=== PATIENT | female | born 1960 | race Caucasian/White ===

== ENCOUNTER → 2019-01-11 12:46 | Outpatient (CLI) | payer OTHER, SELFPAY ==
--- NOTE | 2019-01-11 12:50 | US_ITS ---
PROCEDURE: US BREAST LT COMPLETE CLINICAL INDICATION: LT BREAST PAIN the COMPARISON: BL US BREAST-LT COMPLETE W/AXILLA from 01/08/2016 CYST US CYST ASPIRATION from 02/03/2016 MAMMO DIAGNOSTIC DIGITAL TOMOSYNTHESIS BILATERAL W CAD from 12/27/2016 US GUIDED BREAST BIOPSY W WO DEVICE 1ST LEFT from 12/27/2016 FINDINGS: Ultrasound is performed of the left breast. The patient reports left breast pain and reports that she is too painful for mammogram. Behind the nipple there is a solid-appearing 3 mm nodule adjacent to a dilated duct which may represent a papilloma. 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 Surgical consult was recommended on that exam. Previous ultrasound performed at this institution demonstrated similar appearance of a solid-appearing nodule in the retroareolar region P with a dilated duct. The duct may be slightly more dilated on today's exam. No other sonographic abnormalities are evident. IMPRESSION: Solid-appearing 3 mm nodule adjacent to a dilated duct in the retroareolar region on the left similar to multiple previous exams consistent with a papilloma with ductal dilatation. Surgical consult suggested. Dictated by: Marco Antonio Heredia MD 01/19/2019 09:53 Electronically signed by Marco Antonio Heredia MD in [place] 01/19/2019 09:53
== END ==
PROVIDERS: PCP Nurse Practitioner Family; Visit Provider Nurse Practitioner Family
DX: N64.4 Mastodynia (principal)
CPT/HCPCS: 76641

== ENCOUNTER → 2019-01-19 09:13 | Outpatient (CLI) | payer OTHER, SELFPAY ==
--- NOTE | 2019-01-19 09:17 | XR_ITS ---
PROCEDURE: XR KNEE LT 3V CLINICAL INDICATION: LT KNEE ARTHRITIS COMPARISON: No exams were available for comparison FINDINGS: No fracture or dislocation. No lytic or blastic change. There is normal mineralization. There is slight decrease in the joint space laterally and there are minimal osteophytes at the patellofemoral joint. Other findings:None. IMPRESSION: Minimal osteoarthritic change Dictated by: Marco Antonio Heredia MD 01/19/2019 13:32 Electronically signed by Marco Antonio Heredia MD in [place] 01/19/2019 13:32
== END ==
PROVIDERS: PCP Internal Medicine Adolescent Medicine; Visit Provider Internal Medicine Adolescent Medicine
DX: M17.12 Unilateral primary osteoarthritis, left knee (principal)
CPT/HCPCS: 73562

== ENCOUNTER → 2019-03-13 14:33 | Outpatient (CLI) | payer OTHER, SELFPAY ==
--- NOTE | 2019-03-13 14:38 | MM_ITS ---
PROCEDURE: MM DIG MAMM BI DX W/CAD CLINICAL INDICATION: left breast nodule, rt side screening COMPARISON: [facility] DIGITAL MAMM-SCREEN BILATERAL from 11/28/2009 [facility] DIG MAMM-SCREEN JUANA from 09/30/2014 [facility] DIG MAMM-SCREEN JUANA from 01/07/2016 US GUIDED BREAST BIOPSY W WO DEVICE 1ST LEFT from 12/27/2016 MAMMO DIAGNOSTIC DIGITAL TOMOSYNTHESIS BILATERAL W CAD from 12/27/2016 US BREAST LT COMPLETE from 01/11/2019 TECHNIQUE: Standard CC and MLO images were obtained. R2 CAD reviewed. FINDINGS: There is average fibroglandular tissue. Benign-appearing calcifications are present bilaterally. Stable appearance of the right breast. Patient has a known left-sided breast nodule which was previously biopsied at an outside institution and was reported represent a papilloma. Surgical excision was suggested at that time. On the left there is a retroareolar nodule once again noted measuring 5 mm. This was the nodule that was previously biopsied and demonstrated an intraductal papilloma. A clip is present at this region. There is a small cluster of calcification noted in the left axilla. These appear more numerous. Suggest patient return for Mag views of this area. There are new clustered coarse calcifications in the central aspect of the left breast. Also recommend repeat left breast ultrasound. IMPRESSION: Incomplete. Recommend Mag views of the left breast and left breast ultrasound of the nodular lesion in the retroareolar area BI-RAD Category: 0 Need Additional Imaging Evaluation FOLLOW-UP: IMM Immediate Follow-up Recommended (A letter has been sent to the patient regarding results of the study.) Dictated by: Marco Antonio Heredia MD 03/21/2019 10:15 Electronically signed by Marco Antonio Heredia MD in [place] 03/21/2019 10:15
== END ==
PROVIDERS: PCP Internal Medicine Adolescent Medicine; Visit Provider Surgery
DX: R92.8 Other abnormal and inconclusive findings on diagnostic imaging of breast (principal); N60.02 Solitary cyst of left breast
CPT/HCPCS: 77066

== ENCOUNTER 2019-05-13 00:13 | Inpatient (IN) ==
[2019-05-13 00:57] LABS: Basophils % 0.2 % (0.1-2.0); Eosinophils # 0.1 K/mm3 (0.0-0.4); Eosinophils % 0.4 % (0.1-12.0); Lymphocytes # 1.9 K/mm3 (0.7-4.5); Lymphocytes % 11.7 % (10-50); Mean Corpuscular HGB Conc 34.1 g/dL (31.8-35.4); Mean Corpuscular Volume 98.3 fl (81-99); Mean Platelet Volume 7.6 fl (7.4-10.4); Monocytes # 0.9 K/mm3 (0.1-1.0); Monocytes % 5.5 % (1.7-9.3); Neutrophils # 13.3 K/mm3 (1.8-7.8); Neutrophils % 82.3 % (37.0-80.0); Platelet Count 234 K/mm3 (142-424); Red Blood Count 4.48 M/mm3 (4.20-5.40); Red Cell Distribution Width 12.7 % (11.5-17.5); White Blood Count 16.1 K/mm3 (4.8-10.8)
[2019-05-13 01:13] LABS: Albumin Level 3.5 g/dL (3.4-5.0); Bilirubin,Total 2.4 mg/dL (0.2-1.0); Calcium 8.8 mg/dL (8.5-10.1); Globulin 3.4 gm/dl (1.3-3.2); Total Protein,Serum 6.9 g/dL (6.4-8.2)
[2019-05-13 01:21] LABS: Lymphocytes % 7 % (10-50); Monocytes % 2 % (2-9); Neutrophils % 84 % (42-76); RBC Morphology Normal; Total Cells Counted 100; Toxic Granulation 1+; Toxic Vacuolation 1+
--- NOTE | 2019-05-13 01:48 | Emergency Department Note ---
ED Disposition Clinical Impression: Diverticulitis Disposition: Admitted As Inpatient Condition on Discharge: Good - Critical Care Critical Care Time: No Attestation: On 05/13/19, the high probability of a clinically significant, sudden or life threatening deterioration of the following system(s) required my full and direct attention, intervention and personal management. The time I documented below is in addition to time spent performing reported procedures but includes the following listed in this critical care notation. Medical Decision Making - Medical Records Medical records reviewed: Yes: I reviewed the patient's medical records. - Itz Inquiry Pt receiving controlled substance: No Vital Signs: 05/13/19 00:21 Temperature 99.1 F Temperature Source Oral Pulse Rate [Right Brachial] 89 Respiratory Rate 18 Blood Pressure [Right Arm] 163/87 H Blood Pressure Mean [Right Arm] 112 Blood Pressure Source [Right Arm] Automatic Cuff Blood Pressure Position [Right Arm] Sitting 02 Sat by Pulse Oximetry 95 Oxygen Delivery Method Room Air - Lab Data Lab results reviewed: Yes: I reviewed the patient's lab results. Lab Results 05/13/19 00:32: WBC 16.1 H, RBC 4.48, Hgb 15.0, Hct 44.0, MCV 98.3, MCH 33.5 H, MCHC 34.1, RDW 12.7, Plt Count 234, MPV 7.6, Neut % (Auto) 82.3 H, Lymph % (Auto) 11.7, [place] % (Auto) 5.5, Eos % (Auto) 0.4, Baso % (Auto) 0.2, Neut # (Auto) 13.3 H, Lymph # (Auto) 1.9, [place] # (Auto) 0.9, Eos # (Auto) 0.1, Baso # (Auto) 0.0, Total Counted 100, Neutrophils % (Manual) 84 H, Band Neutrophils % 7.0, Lymphocytes % (Manual) 7 L, Monocytes % (Manual) 2, Toxic Granulation 1+, Toxic Vacuolation 1+, Platelet Estimate Normal, RBC Morphology Normal 05/13/19 00:32: Sodium 139, Potassium 4.0, Chloride 102, Carbon Dioxide 26, An ion Gap 15.0, BUN 20 H, Creatinine 0.97, Estimated Creat Clear 96, Estimated GFR 59, Est GFR ( Amer) 71, Glucose 152 H, Calcium 8.8, Total Bilirubin 2.4 H , AST 21, ALT 23, Alkaline Phosphatase 72, Total Protein 6.9, Albumin 3.5, Globulin 3.4 H, Albumin/Globulin Ratio 1.0 L, Amylase 23 L, Lipase 105 Result diagrams: 05/13/19 00:32 05/13/19 00:32 Orders (Tests/Meds): ED MEDICATIONS Generic Name Dose Route Start Last Admin Trade Name Freq PRN Reason Stop Dose Admin Sodium Chloride 1,000 mls @ 999 mls/hr 05/13/19 00:45 05/13/19 00:49 Sod Chlor 0.9% 1000ml Bag IV 05/13/19 01:45 999 mls/hr .Q1H1M ALBERTO Administration Ertapenem 1 gm/ Sodium 50 mls @ 100 mls/hr 05/13/19 02:15 05/13/19 02:33 Chloride IV 05/27/19 02:14 100 mls/hr Q24H ALBERTO Administration Protocol Morphine Sulfate 4 mg 05/13/19 02:05 05/13/19 02:34 Morphine 4mg/Ml Syringe IV 06/12/19 02:04 4 mg Q4HP PRN Administration Breakthru Moderate Pain Discontinued Medications Generic Name Dose Route Start Last Admin Trade Name Freq PRN Reason Stop Dose Admin Ioversol 75 ml 05/13/19 01:43 Rad-Optiray 350 100ml Vial IV 05/13/19 01:44 ONCE ONE Protocol Ketorolac Tromethamine 30 mg 05/13/19 00:36 05/13/19 00:49 Toradol 30mg/Ml Vial IV 05/13/19 00:37 30 mg ONCE ONE Administration Methylprednisolone Sodium Succinate 125 mg 05/13/19 00:36 05/13/19 00:49 Solu-Medrol 125mg/2ml Vial IV 05/13/19 00:37 125 mg ONCE ONE Administration Ondansetron HCl 4 mg 05/13/19 00:36 05/13/19 00:49 Zofran 4mg/2ml Vial IV 05/13/19 00:37 4 mg ONCE ONE Administration Sodium Chloride 10 ml 05/13/19 01:43 Rad-Saline Flush 10ml Syringe IV 05/13/19 01:44 ONCE ONE ORDERS Category Date Time Status CT abdomen pelvis w con Stat Cat Scan 05/13/19 00:24 Taken Urinalysis and Microscopic Stat Lab 05/13/19 00:24 Ordered - CT Data CT Scan: Abdomen, Pelvis Time Received: 02:[address] Reviewed: Yes: I have viewed the radiologist's interpretation Preliminary Findings: Abnormal (see report ) - Physician Consults Physician Consulted: isaac Reason -: Pt condition Additional Consult: jazmin Reason -: Admission Nausea/Vomiting/Diarrhea HPI - General Chief complaint: Abdominal Pain Stated complaint: Abd Pain Time Seen by Provider: 05/13/19 01:48 Mode of Arrival: Family Vehicle Source of Information: Patient, Spouse, Medical Record Limitations: No Limitations Description of Symptoms (Recalled from ER Triage Doc. by RN): pt began experiencing abd discomfort on tuesday, and was placed on levaquin for a "flare- up of her diverticulitis"; pt states pain and incr got worse and needs pain relief - History of Present Illness HPI Narrative: progressive lt lower abd pain despite her starting levofloxin tuesday - has hx of diverticulitis MD complaint: nausea, vomiting, abdominal pain Onset (ago): day(s) Associated Abdominal Pain: Yes Location of pain: LLQ Severity: moderate Quality: dull Consistency: intermittent Associated symptoms: denies other symptoms - Related Data Home Medications Medication Instructions Recorded Confirmed atenolol 100 mg tablet 100 mg PO DAILY 01/29/19 03/26/19 meloxicam 15 mg tablet 15 mg PO DAILY 01/29/19 03/26/19 pantoprazole 40 mg tablet,delayed 40 mg PO DAILY 01/29/19 03/26/19 release Allergies Allergy/AdvReac Type Severity Reaction Status Date / Time No Known Allergies Allergy Unverified 03/26/19 09:08 [facility] History - Hepatitis A Screen Drug use history?: No High risk sexual behaviors?: No History of sexually transmitted infection?: No Currently employed?: No Childcare worker?: No Do you have indoor plumbing?: Yes Do you have electricity?: Yes Attestation statement:: This patient has been screened for Hepatitis A risk factors. I have reviewed the patient's past medical history: Yes Medical History: Reports:: Gastroesophageal Reflux Disease(GERD), Hypertension Laterality Cases: Bilateral: Tonsillectomy Other Surgeries: Yes: Cholecystectomy, , Other Comment: lt breast biopsy - Social History Smoking Status: Never smoker Alcohol Intake: never Occupational Status: employed Family Hx:: No significant family history ROS Obtained: Yes All systems reviewed & no additional complaints - Constitutional Constitutional: Denies fever(s) - Eyes Eyes: Denies change in vision - ENT Ears, Nose, Mouth, and Throat: Denies sore throat - Cardiovascular Cardiovascular: Denies chest pain at rest, Denies dyspnea - Respiratory Respiratory: No cough - Gastrointestinal Gastrointestingal: Reports: as per HPI, abdominal pain, nausea, vomiting. Denies: diarrhea - Genitourinary Female Genitourinary: Denies hematuria - Musculoskeletal Musculoskeletal: Denies joint pain, Denies joint swelling - Integumentary/Breasts Skin/Breast: Denies rash - Neurologic Neurologic: Denies focal weakness Physical Exam - General General appearance: alert - Head Head exam: normocephalic - Eye Eye exam: Present: PERRL, EOMI. Absent: scleral icterus - ENT ENT exam: Present: mucous membranes dry - Neck Neck exam: Present: trachea midline - Respiratory Respiratory exam: Present: normal lung sounds bilaterally. Absent: respiratory distress - Cardiovascular Cardiovascular exam: Present: regular rate, systolic murmur - Abdominal Exam Abdominal exam: Present: soft, tenderness Abdominal tenderness: Present: LLQ, moderate - Extremities Exam Extremities exam: Present: full ROM - Neurological Exam Neurological exam: Present: alert, oriented X3, CN II-XII intact - Psychiatric Psychiatric exam: Present: normal affect - Skin Skin exam: Absent: rash
[2019-05-13 07:59] LABS: Basophils % 0.1 % (0.1-2.0); Eosinophils % 0.1 % (0.1-12.0); Hematocrit 38.9 % (37.0-47.0); Lymphocytes # 1.3 K/mm3 (0.7-4.5); Lymphocytes % 11.7 % (10-50); Mean Corpuscular Volume 99.7 fl (81-99); Mean Platelet Volume 7.4 fl (7.4-10.4); Monocytes # 0.3 K/mm3 (0.1-1.0); Monocytes % 2.4 % (1.7-9.3); Neutrophils # 9.1 K/mm3 (1.8-7.8); Neutrophils % 85.6 % (37.0-80.0); Platelet Count 154 K/mm3 (142-424); Red Blood Count 3.91 M/mm3 (4.20-5.40); Red Cell Distribution Width 12.7 % (11.5-17.5); White Blood Count 10.7 K/mm3 (4.8-10.8)
[2019-05-13 08:07] LABS: Anion Gap 15.1 mEq/L (5-15); Calcium 8.7 mg/dL (8.5-10.1)
[2019-05-13 08:32] LABS: Hemoglobin 13.5 g/dL (12.2-16.2)
--- NOTE | 2019-05-13 09:56 | Consult Report ---
*Admission Date: 05/13/19 *Reason for consult:: Diverticulitis with abscess *History of present illness: This is a 59-year-old female who presented overnight with increasing abdominal pain. She had radiographic evidence of diverticulitis with associated abscess. No free air. The surgical service was consulted for evaluation and management. No fevers. No bright red blood per rectum. No recent unexplained weight loss. She has a known history of diverticulosis and states that she has had a "serious bout (of diverticulitis) once before". She also describes "mini bouts occasionally over the last few years". She has had a colonoscopy "many years ago" and says she is "definitely overdue". HPI from emergency department evaluation forwarded below: Description of Symptoms (Recalled from ER Triage Doc. by RN): pt began experiencing abd discomfort on tuesday, and was placed on levaquin for a "flare- up of her diverticulitis"; pt states pain and incr got worse and needs pain relief - History of Present Illness HPI Narrative: progressive lt lower abd pain despite her starting levofloxin tuesday - has hx of diverticulitis complaint: nausea, vomiting, abdominal pain Onset (ago): day(s) Associated Abdominal Pain: Yes Location of pain: LLQ Severity: moderate Quality: dull Consistency: intermittent Associated symptoms: denies other symptoms Review of Systems - Constitutional Denies chills - *Cardiovascular Denies chest pain - *Respiratory Denies cough - *Gastrointestinal Reports abdominal pain, Reports nausea - *Musculoskeletal Denies back pain - *Neurologic Denies localized weakness - Hematologic/Lymphatic Denies easy bleeding [facility] History Medical History: Reports:: Gastroesophageal Reflux Disease(GERD), Hypertension Denies:: Diabetes Mellitus Type 1, Diabetes Mellitus Type 2 *Have you ever received a pneumonia vaccine?: No *Have you received a flu vaccine this season?: No Laterality Cases: Bilateral: Tonsillectomy Other Surgeries: Yes: Cholecystectomy, , Hysterectomy-Total, Other - *Social History Educational Level: Attended College Smoking Status: Never smoker Alcohol Intake: never *Occupational Status:: employed *Travel in the last 8 weeks: None Family Hx:: Cancer, Coronary Artery Disease, Hyperlipidemia, Hypertension Meds Home Medications Medication Instructions Recorded Confirmed Type atenolol 100 mg tablet 100 mg PO DAILY 01/29/19 05/13/19 History meloxicam 15 mg tablet 15 mg PO DAILY 01/29/19 05/13/19 History pantoprazole 40 mg tablet,delayed 40 mg PO DAILY 01/29/19 05/13/19 History release Acetaminophen with Codeine 1 tab PO NEEDED PRN 05/13/19 05/13/19 History [Acetaminophen w/Codeine #3 Tablet] levoFLOXacin [Levaquin] 500 mg PO DAILY 05/13/19 05/13/19 History Allergies Allergy/AdvReac Type Severity Reaction Status Date / Time No Known Allergies Allergy Unverified 03/26/19 09:08 Exam Vital signs and Labs for Last 24 Hours: Temp Pulse Resp BP Pulse Ox 98.0 F 68 17 131/72 95 05/13/19 08:00 05/13/19 08:00 05/13/19 08:00 05/13/19 08:00 05/13/19 08:00 Laboratory Results - last 24 hr 05/13/19 00:32: WBC 16.1 H, RBC 4.48, Hgb 15.0, Hct 44.0, MCV 98.3, MCH 33.5 H, MCHC 34.1, RDW 12.7, Plt Count 234, MPV 7.6, Neut % (Auto) 82.3 H, Lymph % (Auto) 11.7, [place] % (Auto) 5.5, Eos % (Auto) 0.4, Baso % (Auto) 0.2, Neut # (Auto) 13.3 H, Lymph # (Auto) 1.9, [place] # (Auto) 0.9, Eos # (Auto) 0.1, Baso # (Auto) 0.0, Total Counted 100, Neutrophils % (Manual) 84 H, Band Neutrophils % 7.0, Lymphocytes % (Manual) 7 L, Monocytes % (Manual) 2, Toxic Granulation 1+, Toxic Vacuolation 1+, Platelet Estimate Normal, RBC Morphology Normal 05/13/19 00:32: Sodium 139, Potassium 4.0, Chloride 102, Carbon Dioxide 26, Anion Gap 15.0, BUN 20 H, Creatinine 0.97, Estimated Creat Clear 96, Estimated GFR 59, Est GFR ( Amer) 71, Glucose 152 H, Calcium 8.8, Total Bilirubin 2.4 H, AST 21, ALT 23, Alkaline Phosphatase 72, Total Protein 6.9, Albumin 3.5, Globulin 3.4 H, Albumin/Globulin Ratio 1.0 L, Amylase 23 L, Lipase 105 05/13/19 01:41: Urine Color Cancelled, Urine Appearance Cancelled, Urine pH Cancelled, Ur Specific [place] Cancelled, Urine Protein Cancelled, Urine Glucose (UA) Cancelled, Urine Ketones Cancelled, Urine Blood Cancelled, Urine Nitrate Cancelled, Urine Bilirubin Cancelled, Urine Urobilinogen Cancelled, Ur Leukocyte Esterase Cancelled, Urine RBC Cancelled, Urine WBC Cancelled, Ur Squamous Epith Cells Cancelled, Ur Transition Epith Cell Cancelled, Ur Renal Epithelial Cell Cancelled, Calcium Carbonate Cryst Cancelled, Calcium Phosphate Cryst Cancelled, Calcium Oxalate Crystal Cancelled, Cystine Crystals Cancelled, Uric Acid C rystals Cancelled, Triple Phos Crystals Cancelled, Tyrosine Crystals Cancelled, Other Crystals Cancelled, Amorphous Sediment Cancelled, Other Sediment Cancelled, Urine Bacteria Cancelled, Fatty Casts Cancelled, Hyaline Casts Cancelled, Fine Granular Casts Cancelled, Coarse Granular Casts Cancelled, Waxy Casts Cancelled, RBC Casts Cancelled, WBC Casts Cancelled, Other Casts Cancelled, Urine Mucus Cancelled, Urine Trichomonas Cancelled, Urine Yeast Cancelled, Urine Sperm Cancelled 05/13/19 02:27: Lactate 0.8 05/13/19 06:35: WBC 10.7 D, RBC 3.91 L, Hgb 13.5, Hct 38.9, MCV 99.7 H, MCH 33.8 H, MCHC 34.0, RDW 12.7, Plt Count 154 D, MPV 7.4, Neut % (Auto) 85.6 H, Lymph % (Auto) 11.7, [place] % (Auto) 2.4, Eos % (Auto) 0.1, Baso % (Auto) 0.1, Neut # (Auto) 9.1 H, Lymph # (Auto) 1.3, [place] # (Auto) 0.3, Eos # (Auto) 0.0, Baso # (Auto) 0.0 05/13/19 06:35: Sodium 141, Potassium 4.1, Chloride 106, Carbon Dioxide 24, Anion Gap 15.1 H, BUN 20 H, Creatinine 0.97, Estimated Creat Clear 96, Estimated GFR 59, Est GFR ( Amer) 71, Glucose 182 H, Calcium 8.7 I & O for Last 24 hours: Intake & Output 05/10/19 05/11/19 05/12/19 05/13/19 11:59 11:59 11:59 11:59 Intake Total 1218 / 1218 Balance 8 1218 Weight 215 lb 3 oz - Constitutional no acute distress - *Routine HEENT Exam Head: Present: normocephalic - *Routine Respiratory Exam Absent: respiratory distress - *Routine Cardiovascular Exam Present: RRR - *Routine Abdominal Exam Present: soft, tenderness, obese. Absent: guarding, rigid Results - Labs 05/13/19 06:35 05/13/19 06:35 Laboratory Results - last 24 hr 05/13/19 00:32: WBC 16.1 H, RBC 4.48, Hgb 15.0, Hct 44.0, MCV 98.3, MCH 33.5 H, MCHC 34.1, RDW 12.7, Plt Count 234, MPV 7.6, Neut % (Auto) 82.3 H, Lymph % (Auto) 11.7, [place] % (Auto) 5.5, Eos % (Auto) 0.4, Baso % (Auto) 0.2, Neut # (Auto) 13.3 H, Lymph # (Auto) 1.9, [place] # (Auto) 0.9, Eos # (Auto) 0.1, Baso # (Auto) 0.0, Total Counted 100, Neutrophils % (Manual) 84 H, Band Neutrophils % 7.0, Lymphocytes % (Manual) 7 L, Monocytes % (Manual) 2, Toxic Granulation 1+, Toxic Vacuolation 1+, Platelet Estimate Normal, RBC Morphology Normal 05/13/19 00:32: Sodium 139, Potassium 4.0, Chloride 102, Carbon Dioxide 26, Anion Gap 15.0, BUN 20 H, Creatinine 0.97, Estimated Creat Clear 96, Estimated GFR 59, Est GFR ( Amer) 71, Glucose 152 H, Calcium 8.8, Total Bilirubin 2.4 H, AST 21, ALT 23, Alkaline Phosphatase 72, Total Protein 6.9, Albumin 3.5, Globulin 3.4 H, Albumin/Globulin Ratio 1.0 L, Amylase 23 L, Lipase 105 05/13/19 01:41: Urine Color Cancelled, Urine Appearance Cancelled, Urine pH Cancelled, Ur Specific [place] Cancelled, Urine Protein Cancelled, Urine Glucose (UA) Cancelled, Urine Ketones Cancelled, Urine Blood Cancelled, Urine Nitrate Cancelled, Urine Bilirubin Cancelled, Urine Urobilinogen Cancelled, Ur Leukocyte Esterase Cancelled, Urine RBC Cancelled, Urine WBC Cancelled, Ur Squamous Epith Cells Cancelled, Ur Transition Epith Cell Cancelled, Ur Renal Epithelial Cell Cancelled, Calcium Carbonate Cryst Cancelled, Calcium Phosphate Cryst Cancelled, Calcium Oxalate Crystal Cancelled, Cystine Crystals Cancelled, Uric Acid Crystals Cancelled, Triple Phos Crystals Cancelled, Tyrosine Crystals Cancelled, Other Crystals Cancelled, Amorphous Sediment Cancelled, Other Sediment Cancelled, Urine Bacteria Cancelled, Fatty Casts Cancelled, Hyaline Casts Cancelled, Fine Granular Casts Cancelled, Coarse Granular Casts Cancelled, Waxy Casts Cancelled, RBC Casts Cancelled, WBC Casts Cancelled, Other Casts Cancelled, Urine Mucus Cancelled, Urine Trichomonas Cancelled, Urine Yeast Cancelled, Urine Sperm Cancelled 05/13/19 02:27: Lactate 0.8 05/13/19 06:35: WBC 10.7 D, RBC 3.91 L, Hgb 13.5, Hct 38.9, MCV 99.7 H, MCH 33.8 H, MCHC 34.0, RDW 12.7, Plt Count 154 D, MPV 7.4, Neut % (Auto) 85.6 H, Lymph % (Auto) 11.7, [place] % (Auto) 2.4, Eos % (Auto) 0.1, Baso % (Auto) 0.1, Neut # (Auto) 9.1 H, Lymph # (Auto) 1.3, [place] # (Auto) 0.3, Eos # (Auto) 0.0, Baso # (Auto) 0.0 05/13/19 06:35: Sodium 141, Potassium 4.1, Chloride 106, Carbon Dioxide 24, Anion Gap 15.1 H, BUN 20 H, Creatinine 0.97, Estimated Creat Clear 96, Estimated GFR 59, Est GFR ( Amer) 71, Glucose 182 H, Calcium 8.7 - Imaging CT scan - abdomen: report reviewed, image reviewed CT scan - pelvis: report reviewed, image reviewed Assessment and Plan (1) Diverticulitis of large intestine with abscess Current visit: Yes Status: Acute Category: Medical Code(s): K57.20 - Diverticulitis of large intestine with perforation and abscess without bleeding Continue Invanz (complete 10 to 14-day course) Serial abdominal exams Clear liquids for now with slow advancement to a soft diet as she tolerates Repeat CT scan in 5 to 10 days for reassessment of abscesses (may require percutaneous drainage) Colonoscopy as outpatient Discussion with regard to elective resection will be ongoing
--- NOTE | 2019-05-13 16:52 | History & Physical Report ---
*Admission Date: 05/13/19 *Chief complaint: Severe onset of abdominal pain *History of present illness: This is a 59-year-old female who presented overnight with increasing abdominal pain. She had radiographic evidence of diverticulitis with associated abscess. No free air. The surgical service was consulted for evaluation and management. No fevers. No bright red blood per rectum. No recent unexplained weight loss. She has a known history of diverticulosis and states that she has had a "serious bout (of diverticulitis) once before". She also describes "mini bouts occasionally over the last few years". She has had a colonoscopy "many years ago" and says she is "definitely overdue". [facility] History I have reviewed the patient's past medical history: Yes Medical History: Reports:: Gastroesophageal Reflux Disease(GERD), Hypertension Denies:: Diabetes Mellitus Type 1, Diabetes Mellitus Type 2 *Have you ever received a pneumonia vaccine?: No *Have you received a flu vaccine this season?: No Laterality Cases: Bilateral: Tonsillectomy Other Surgeries: Yes: Cholecystectomy, , Hysterectomy-Total, Other - *Social History Educational Level: Attended College Smoking Status: Never smoker Alcohol Intake: never *Occupational Status:: employed *Travel in the last 8 weeks: None Family Hx:: Cancer, Coronary Artery Disease, Hyperlipidemia, Hypertension Review of Systems - Review of Systems Review of systems:: pertinent systems reviewed and negative unless documented below (14 point review of systems performed, pertinent positives and negatives as per HPI) - *Neurologic Denies localized weakness Meds Home Medications Medication Instructions Recorded Confirmed Type atenolol 100 mg tablet 100 mg PO DAILY 01/29/19 05/13/19 History meloxicam 15 mg tablet 15 mg PO DAILY 01/29/19 05/13/19 History pantoprazole 40 mg tablet,delayed 40 mg PO DAILY 01/29/19 05/13/19 History release Acetaminophen with Codeine 1 tab PO NEEDED PRN 05/13/19 05/13/19 History [Acetaminophen w/Codeine #3 Tablet] levoFLOXacin [Levaquin] 500 mg PO DAILY 05/13/19 05/13/19 History Allergies Allergy/AdvReac Type Severity Reaction Status Date / Time No Known Allergies Allergy Unverified 03/26/19 09:08 Exam Vital signs and Labs for Last 24 Hours: Temp Pulse Resp BP Pulse Ox 97.9 F 65 17 134/59 L 96 05/13/19 16:00 05/13/19 16:00 05/13/19 16:00 05/13/19 16:00 05/13/19 16:00 Laboratory Results - last 24 hr 05/13/19 00:32: WBC 16.1 H, RBC 4.48, Hgb 15.0, Hct 44.0, MCV 98.3, MCH 33.5 H, MCHC 34.1, RDW 12.7, Plt Count 234, MPV 7.6, Neut % (Auto) 82.3 H, Lymph % (Auto) 11.7, Gillespie % (Auto) 5.5, Eos % (Auto) 0.4, Baso % (Auto) 0.2, Neut # (Auto) 13.3 H, Lymph # (Auto) 1.9, Gillespie # (Auto) 0.9, Eos # (Auto) 0.1, Baso # (Auto) 0.0, Total Counted 100, Neutrophils % (Manual) 84 H, Band Neutrophils % 7.0, Lymphocytes % (Manual) 7 L, Monocytes % (Manual) 2, Toxic Granulation 1+, Toxic Vacuolation 1+, Platelet Estimate Normal, RBC Morphology Normal 05/13/19 00:32: Sodium 139, Potassium 4.0, Chloride 102, Carbon Dioxide 26, Anion Gap 15.0, BUN 20 H, Creatinine 0.97, Estimated Creat Clear 96, Estimated GFR 59, Est GFR ( Amer) 71, Glucose 152 H, Calcium 8.8, Total Bilirubin 2.4 H, AST 21, ALT 23, Alkaline Phosphatase 72, Total Protein 6.9, Albumin 3.5, Globulin 3.4 H, Albumin/Globulin Ratio 1.0 L, Amylase 23 L, Lipase 105 05/13/19 01:41: Urine Color Cancelled, Urine Appearance Cancelled, Urine pH Cancelled, Ur Specific [place] Cancelled, Urine Protein Cancelled, Urine Glucose (UA) Cancelled, Urine Ketones Cancelled, Urine Blood Cancelled, Urine Nitrate C ancelled, Urine Bilirubin Cancelled, Urine Urobilinogen Cancelled, Ur Leukocyte Esterase Cancelled, Urine RBC Cancelled, Urine WBC Cancelled, Ur Squamous Epith Cells Cancelled, Ur Transition Epith Cell Cancelled, Ur Renal Epithelial Cell Cancelled, Calcium Carbonate Cryst Cancelled, Calcium Phosphate Cryst Cancelled, Calcium Oxalate Crystal Cancelled, Cystine Crystals Cancelled, Uric Acid Crystals Cancelled, Triple Phos Crystals Cancelled, Tyrosine Crystals Cancelled, Other Crystals Cancelled, Amorphous Sediment Cancelled, Other Sediment Cancelled, Urine Bacteria Cancelled, Fatty Casts Cancelled, Hyaline Casts Cancelled, Fine Granular Casts Cancelled, Coarse Granular Casts Cancelled, Waxy Casts Cancelled, RBC Casts Cancelled, WBC Casts Cancelled, Other Casts Cancelled, Urine Mucus Cancelled, Urine Trichomonas Cancelled, Urine Yeast Cancelled, Urine Sperm Cancelled 05/13/19 02:27: Lactate 0.8 05/13/19 06:35: WBC 10.7 D, RBC 3.91 L, Hgb 13.5, Hct 38.9, MCV 99.7 H, MCH 33.8 H, MCHC 34.0, RDW 12.7, Plt Count 154 D, MPV 7.4, Neut % (Auto) 85.6 H, Lymph % (Auto) 11.7, Gillespie % (Auto) 2.4, Eos % (Auto) 0.1, Baso % (Auto) 0.1, Neut # (Auto) 9.1 H, Lymph # (Auto) 1.3, Gillespie # (Auto) 0.3, Eos # (Auto) 0.0, Baso # (Auto) 0.0 05/13/19 06:35: Sodium 141, Potassium 4.1, Chloride 106, Carbon Dioxide 24, Anion Gap 15.1 H, BUN 20 H, Creatinine 0.97, Estimated Creat Clear 96, Estimated GFR 59, Est GFR ( Amer) 71, Glucose 182 H, Calcium 8.7 I & O for Last 24 hours: Intake & Output 05/10/19 05/11/19 05/12/19 05/13/19 23:59 23:59 23:59 23:59 Intake Total 1218 / 1218 Balance 1218 / 1218 Weight 97.607 kg - Constitutional no acute distress, obese - *Routine HEENT Exam Head: Present: normocephalic Eye: Present: EOMI, PERRL ENT: Present: mucous membranes moist - *Routine Neck Exam Present: supple. Absent: lymphadenopathy - *Routine Respiratory Exam Present: CTA bilaterally - *Routine Cardiovascular Exam Present: RRR - *Routine Abdominal Exam Present: soft, tenderness (Hypoactive bowel sounds, diffuse tenderness with focal exquisite tenderness left lower quadrant just medial to ASIS). Absent: rebound - *Routine Extremities Exam Absent: cyanosis, clubbing, edema - *Routine Skin Exam Present: warm. Absent: rash - *Routine Neurological Exam Present: alert, oriented X3 Assessment and Plan (1) Diverticulitis of large intestine with abscess Current visit: Yes Status: Acute Category: Medical Code(s): K57.20 - Diverticulitis of large intestine with perforation and abscess without bleeding (2) Class 2 obesity Current visit: Yes Status: Chronic Category: Medical Code(s): E66.9 - Obesity, unspecified complicates all aspects of her care (3) Constipation Current visit: Yes Status: Acute Category: Medical Code(s): K59.00 - Constipation, unspecified - Assessment and plan all Dx Assessment and Plan for all problems:: 59-year-old female with history of diverticulosis who presents with 1 week of worsening abdominal pain that culminated with acute worsening on day of presentation. Found to have complicated diverticulitis with perforation and abscess formation. At this time is tolerating IV Invanz. Surgery consulted for recommendations. Appreciate their assistance. Recommendations as follows: Continue Invanz (complete 10 to 14-day course) Serial abdominal exams Clear liquids for now with slow advancement to a soft diet as she tolerates Repeat CT scan in 5 to 10 days for reassessment of abscesses (may require percutaneous drainage) Colonoscopy as outpatient Discussion with regard to elective resection will be ongoing Initiated Toradol for pain control. Plan for PICC placement in the morning. Antibiotics as per above. Tolerating clear liquids at this time. Patient is additionally constipated, initiate bowel regimen today.
[2019-05-14 06:43] LABS: Albumin/Globulin Ratio 0.8 (1.1-1.8); Anion Gap 12.2 mEq/L (5-15); Bilirubin,Total 0.7 mg/dL (0.2-1.0); Calcium 8.5 mg/dL (8.5-10.1); Globulin 3.6 gm/dl (1.3-3.2); Total Protein,Serum 6.6 g/dL (6.4-8.2)
[2019-05-14 06:44] LABS: Basophils % 0.2 % (0.1-2.0); Eosinophils % 0.2 % (0.1-12.0); Hematocrit 37.7 % (37.0-47.0); Hemoglobin 12.7 g/dL (12.2-16.2); Lymphocytes # 0.9 K/mm3 (0.7-4.5); Mean Corpuscular HGB Conc 33.7 g/dL (31.8-35.4); Mean Corpuscular Volume 98.5 fl (81-99); Mean Platelet Volume 7.4 fl (7.4-10.4); Monocytes # 0.2 K/mm3 (0.1-1.0); Monocytes % 2.6 % (1.7-9.3); Neutrophils % 87.1 % (37.0-80.0); Platelet Count 177 K/mm3 (142-424); Red Blood Count 3.82 M/mm3 (4.20-5.40); Red Cell Distribution Width 12.5 % (11.5-17.5); White Blood Count 9.2 K/mm3 (4.8-10.8)
--- NOTE | 2019-05-14 07:28 | Discharge Summary ---
General - General Admission date:: 05/13/19 Discharge date: 05/14/19 HPI HPI: 59-year-old female with approximately 5 days of worsening abdominal pain. Had standing order at home for fluoroquinolone which she started on Tuesday. She has known history of diverticulosis with last hospitalization approximately a year ago for diverticulitis. She states that symptoms were doing somewhat better until yesterday when she had acute onset of worsening abdominal pain in her left lower quadrant. It was serious enough to cause her to come to the ER for evaluation. Initial labs fairly unremarkable however CT abdomen pelvis showed what appeared to be 3 abscesses and pericolonic stranding by her sigmoid colon. Largest abscess approximately 3 cm. Admitted to medicine for further management. Initiated on Invanz. Made n.p.o. Surgery consulted for recommendations. Hospital Course Hospital Course: Admitted overnight with initiation of IV antibiotics. Diet slowly advanced during stay. Pain better controlled. Tolerating bowel regimen with improvement in constipation. PICC line was placed prior to discharge. Plan for 12 more days of IV Invanz infusions. We will follow-up imaging in a week with repeat CT to assess for improvement, resolution, progression of abscess. At that time will make decision about possible interventional radiology drain placement either here at [facility] or . Additionally will plan for colonoscopy in the coming months and referral to for her again consult to discuss definitive treatment for diverticulosis. Denies nausea, vomiting, chest pain, shortness of breath. Reports improved abdominal pain. Tolerating full liquid diet. Afebrile, hemodynamically stable. Medically stable for discharge Objective Vital signs: Temp Pulse Resp BP Pulse Ox 98.4 F 79 16 140/74 97 05/14/19 04:00 05/14/19 04:00 05/14/19 04:00 05/14/19 04:00 05/14/19 04:00 Narrative: - Constitutional: no acute distress, obese - *Routine HEENT Exam Head: Present: normocephalic Eye: Present: EOMI, PERRL ENT: Present: mucous membranes moist - *Routine Neck Exam Present: supple. Absent: lymphadenopathy - *Routine Respiratory Exam Present: CTA bilaterally - *Routine Cardiovascular Exam Present: RRR - *Routine Abdominal Exam Present: soft, interval improvement in tenderness, normoactive bowel sounds. minimal right sided tenderness, non tender throughout other than LLQ focally just medial to ASIS Absent: rebound - *Routine Extremities Exam Absent: cyanosis, clubbing, edema - *Routine Skin Exam Present: warm. Absent: rash - *Routine Neurological Exam Present: alert, oriented X3 Results Labs on day of discharge: Labs from last 24 hours 05/14/19 05/14/19 05/13/19 05:50 05:50 06:35 WBC 9.2 RBC 3.82 L Hgb 12.7 Hct 37.7 MCV 98.5 MCH 33.2 H MCHC 33.7 RDW 12.5 Plt Count 177 MPV 7.4 Neut % (Auto) 87.1 H Lymph % (Auto) 10.0 Good[place] % (Auto) 2.6 Eos % (Auto) 0.2 Baso % (Auto) 0.2 Neut # (Auto) 8.0 H Lymph # (Auto) 0.9 [place] # (Auto) 0.2 Eos # (Auto) 0.0 Baso # (Auto) 0.0 Sodium 145 141 Potassium 4.2 4.1 Chloride 110 H 106 Carbon Dioxide 27 24 Anion Gap 12.2 15.1 H BUN 18 20 H Creatinine 0.96 0.97 Estimated Creat Clear 48 96 Estimated GFR 59 59 Est GFR ( Amer) 72 71 Glucose 172 H 182 H Calcium 8.5 8.7 Magnesium 2.0 Total Bilirubin 0.7 AST 13 L D ALT 21 Alkaline Phosphatase 57 Total Protein 6.6 Albumin 3.0 L D Globulin 3.6 H Albumin/Globulin Ratio 0.8 L 05/13/19 06:35 WBC 10.7 D RBC 3.91 L Hgb 13.5 Hct 38.9 MCV 99.7 H MCH 33.8 H MCHC 34.0 RDW 12.7 Plt Count 154 D MPV 7.4 Neut % (Auto) 85.6 H Lymph % (Auto) 11.7 Gooding % (Auto) 2.4 Eos % (Auto) 0.1 Baso % (Auto) 0.1 Neut # (Auto) 9.1 H Lymph # (Auto) 1.3 Gooding # (Auto) 0.3 Eos # (Auto) 0.0 Baso # (Auto) 0.0 Sodium Potassium Chloride Carbon Dioxide Anion Gap BUN Creatinine Estimated Creat Clear Estimated GFR Est GFR ( Amer) Glucose Calcium Magnesium Total Bilirubin AST ALT Alkaline Phosphatase Total Protein Albumin Globulin Albumin/Globulin Ratio DS: Diagnosis - Discharge Diagnosis (1) Diverticulitis of large intestine with abscess Status: Acute (2) Class 2 obesity Status: Chronic (3) Constipation Status: Resolved Discharge Plan - Patient Discharge Instructions ACTIVITY: Continue current activity DIET: continue same diet Patient Instructions: Diverticulitis, DI for Diverticulitis, Peripherally Inserted Central Catheter - Follow up Plan Follow up with: Rogelio Erwin MD [Staff Physician] - 05/22/19 10:15 am Daniel Londono MD [Staff Physician] - 05/23/19 9:45 am Disposition: Home, Self-Retirement Medications: Home Medications Medication Instructions Recorded Confirmed Type atenolol 100 mg tablet 100 mg PO DAILY 01/29/19 05/13/19 History meloxicam 15 mg tablet 15 mg PO DAILY 01/29/19 05/13/19 History pantoprazole 40 mg tablet,delayed 40 mg PO DAILY 01/29/19 05/13/19 History release Acetaminophen with Codeine 1 tab PO NEEDED PRN 05/13/19 05/13/19 History [Acetaminophen w/Codeine #3 Tablet] Ertapenem Sodium [Invanz 1gm Vial] 1 gm IV Q24H 12 Days #12 vial 05/14/19 Rx polyethylene glycoL 3350 [Miralax 17 gm PO BID powd.pack 05/14/19 Rx 17gm Packet] Prescriptions/Medication Reconciliation: New polyethylene glycoL 3350 [Miralax 17gm Packet] 17 gm PO BID powd.pack Ertapenem Sodium [Invanz 1gm Vial] 1 gm IV Q24H 12 Days #12 vial Continued atenolol 100 mg tablet 100 mg PO DAILY pantoprazole 40 mg tablet,delayed release 40 mg PO DAILY meloxicam 15 mg tablet 15 mg PO DAILY Acetaminophen with Codeine [Acetaminophen w/Codeine #3 Tablet] 1 tab PO NEEDED PRN PRN Reason: Moderate To Severe Pain Discontinued levoFLOXacin [Levaquin] 500 mg PO DAILY - Problem Reconciliation Problems Reviewed?: Yes
--- NOTE | 2019-05-14 07:33 | Pharmacy Consult Notes ---
[facility] Pharmacy VTE Monitoring - Patient Demographics Admission date: 05/13/19 Report Date: 05/14/19 Time: 07:32 Allergies/Adverse Reactions: Patient Allergies No Known Allergies Allergy (Unverified 03/26/19 09:08) Height: 1.57 m Weight: 100.357 kg Patient Problems: Current Active Problems Diverticulitis (Acute) Diverticulitis of large intestine with abscess (Acute) Class 2 obesity (Chronic) Constipation (Acute) - VTE Risk Labs: VTE Related Lab Results Hgb 12.7 g/dL (12.2-16.2) 05/14/19 05:50 Hct 37.7 % (37.0-47.0) 05/14/19 05:50 Plt Count 177 K/mm3 (142-424) 05/14/19 05:50 BUN 18 mg/dL (7-18) 05/14/19 05:50 Creatinine 0.96 mg/dL (0.55-1.02) 05/14/19 05:50 Estimated Creat Clear 48 mL/min (50-200) 05/14/19 05:50 VTE Score: 2 - Prophylaxis VTE Prophylaxis Ordered?: Yes Types of VTE Prophylaxis: TEDS Knee High Location of Applied Device: Bilateral Lower Extremeties
[2019-05-14 07:38] LABS: Eosinophils % 1 % (0-3); Lymphocytes % 11 % (10-50); Monocytes % 4 % (2-9); Neutrophils % 84 % (42-76); Total Cells Counted 100
[2019-05-14 07:39] LABS: RBC Morphology Normal
--- NOTE | 2019-05-14 08:21 | Progress Note ---
Subjective Patient reports: feels better, still having pain, pain is less, bowel movement Exam Vital signs and Labs for Last 24 Hours: Temp Pulse Resp BP Pulse Ox 98.4 F 79 16 140/74 97 05/14/19 04:00 05/14/19 04:00 05/14/19 04:00 05/14/19 04:00 05/14/19 04:00 Laboratory Results - last 24 hr 05/13/19 06:35: WBC 10.7 D, RBC 3.91 L, Hgb 13.5, Hct 38.9, MCV 99.7 H, MCH 33.8 H, MCHC 34.0, RDW 12.7, Plt Count 154 D, MPV 7.4, Neut % (Auto) 85.6 H, Lymph % (Auto) 11.7, [place] % (Auto) 2.4, Eos % (Auto) 0.1, Baso % (Auto) 0.1, Neut # (Auto) 9.1 H, Lymph # (Auto) 1.3, [place] # (Auto) 0.3, Eos # (Auto) 0.0, Baso # (Auto) 0.0 05/13/19 06:35: Sodium 141, Potassium 4.1, Chloride 106, Carbon Dioxide 24, Anion Gap 15.1 H, BUN 20 H, Creatinine 0.97, Estimated Creat Clear 96, Estimated GFR 59, Est GFR ( Amer) 71, Glucose 182 H, Calcium 8.7 05/14/19 05:50: WBC 9.2, RBC 3.82 L, Hgb 12.7, Hct 37.7, MCV 98.5, MCH 33.2 H, MCHC 33.7, RDW 12.5, Plt Count 177, MPV 7.4, Neut % (Auto) 87.1 H, Lymph % (Auto) 10.0, [place] % (Auto) 2.6, Eos % (Auto) 0.2, Baso % (Auto) 0.2, Neut # (Auto) 8.0 H, Lymph # (Auto) 0.9, [place] # (Auto) 0.2, Eos # (Auto) 0.0, Baso # (Auto) 0.0, Total Counted 100, Neutrophils % (Manual) 84 H, Lymphocytes % (Manual) 11, Monocytes % (Manual) 4, Eosinophils % (Manual) 1, Platelet Estimate Normal, RBC Morphology Normal 05/14/19 05:50: Sodium 145, Potassium 4.2, Chloride 110 H, Carbon Dioxide 27, Anion Gap 12.2, BUN 18, Creatinine 0.96, Estimated Creat Clear 48, Estimated GFR 59, Est GFR ( Amer) 72, Glucose 172 H, Calcium 8.5, Magnesium 2.0, Total Bilirubin 0.7, AST 13 L D, ALT 21, Alkaline Phosphatase 57, Total Protein 6.6, Albumin 3.0 L D, Globulin 3.6 H, Albumin/Globulin Ratio 0.8 L I & O for Last 24 hours: Intake & Output 05/11/19 05/12/19 05/13/19 05/14/19 11:59 11:59 11:59 11:59 Intake Total 1218 / 1218 2442 / 2442 Output Total 0 / 0 Balance 1218 / 1218 2442 / 2442 Weight 215 lb 3 oz 221 lb 3.989 oz - Constitutional no acute distress - *Routine Respiratory Exam Absent: respiratory distress - *Routine Cardiovascular Exam Present: RRR - *Routine Abdominal Exam Comments: still with some pain/discomfort in LLQ Progress Note: A&P (1) Diverticulitis of large intestine with abscess Status: Acute Assessment and plan: Invanz via PICC Close outpatient follow-up Repeat CT scan in 5-7 days Colonoscopy in near future Discussion with regard to possible elective resection will be ongoing. She wishes to consider laparoscopic approach and also wishes to consider discussion with Dr. Tobi Adame at the [facility]. Current Visit: Yes (2) Class 2 obesity Status: Chronic Current Visit: Yes (3) Constipation Status: Acute Current Visit: Yes
== END 2019-05-14 16:20 | disposition home or self-care (01) | DRG 392 ==
LOC: ER 00:13 → 2ND 00:13 → OBSVTOIN 03:20 → 2ND 03:21
PROVIDERS: ADMIT Internal Medicine Adolescent Medicine; ATTEND Internal Medicine Adolescent Medicine
CPT/HCPCS: 36415; 36569; 71010; 71045; 74177; 80048; 80053; 82150; 83605; 83690; 83735; 85007; 85025; 87040; 96365; 96375; 99284; C1751; J1335; J2405

== ENCOUNTER 2019-05-15 13:05 | Outpatient (CLI) | payer OTHER, SELFPAY ==
[2019-05-15 13:25] VITALS: BP 138/77; PULSE 90; RESP 18; TEMP 36.6; O2SAT 97
[2019-05-15 13:55] VITALS: BP 131/79; PULSE 87; RESP 18; O2SAT 98
[2019-05-15 14:10] VITALS: BP 135/74; PULSE 91; RESP 18; O2SAT 97
== END 2019-05-15 14:10 | disposition home or self-care (01) ==
LOC: INF 13:06
PROVIDERS: PCP Internal Medicine Adolescent Medicine; Visit Provider Internal Medicine Adolescent Medicine
DX: K57.20 Diverticulitis of large intestine with perforation and abscess without bleeding
CPT/HCPCS: 96365; J1335

== ENCOUNTER 2019-05-16 12:25 | Outpatient (CLI) | payer OTHER, SELFPAY ==
[2019-05-16 12:40] VITALS: BP 126/84; PULSE 70; RESP 18; TEMP 36.6; O2SAT 98
[2019-05-16 13:10] VITALS: BP 127/81; PULSE 69; RESP 18; O2SAT 98
[2019-05-16 13:25] VITALS: BP 130/73; PULSE 67; RESP 18; O2SAT 97
== END 2019-05-16 13:25 | disposition home or self-care (01) ==
LOC: INF 12:25
PROVIDERS: PCP Internal Medicine Adolescent Medicine; Visit Provider Internal Medicine Adolescent Medicine
DX: K57.20 Diverticulitis of large intestine with perforation and abscess without bleeding (principal)
CPT/HCPCS: 96365; J1335

== ENCOUNTER 2019-05-17 12:27 | Outpatient (CLI) | payer OTHER, SELFPAY ==
[2019-05-17 12:35] VITALS: BP 127/68; PULSE 74; RESP 18; TEMP 36.4; O2SAT 98
[2019-05-17 13:10] VITALS: BP 128/80; PULSE 74; RESP 18; TEMP 36.4; O2SAT 98
== END 2019-05-17 13:15 | disposition home or self-care (01) ==
LOC: INF 12:27
PROVIDERS: Visit Provider Internal Medicine Adolescent Medicine
DX: K57.20 Diverticulitis of large intestine with perforation and abscess without bleeding (principal)
CPT/HCPCS: 96365; J1335

== ENCOUNTER 2019-05-18 12:19 | Outpatient (CLI) | payer OTHER, SELFPAY ==
[2019-05-18 12:25] VITALS: BP 132/75; PULSE 65; RESP 18; TEMP 36.2
[2019-05-18 13:15] VITALS: BP 126/66; PULSE 68; RESP 18
== END 2019-05-18 13:15 | disposition home or self-care (01) ==
LOC: INF 12:19
PROVIDERS: Visit Provider Internal Medicine Adolescent Medicine
DX: K57.20 Diverticulitis of large intestine with perforation and abscess without bleeding (principal)
CPT/HCPCS: 96365; J1335

== ENCOUNTER → 2019-05-19 11:10 | Outpatient (CLI) | payer OTHER, SELFPAY ==
[2019-05-19 11:31] VITALS: BP 135/78; PULSE 66; RESP 16; TEMP 36.9; O2SAT 97; BMI 34.7
== END ==
PROVIDERS: PCP Internal Medicine Adolescent Medicine; Visit Provider Internal Medicine Adolescent Medicine
DX: K57.20 Diverticulitis of large intestine with perforation and abscess without bleeding (principal)
CPT/HCPCS: 96365; J1335

== ENCOUNTER → 2019-05-20 11:17 | Outpatient (CLI) | payer OTHER, SELFPAY ==
[2019-05-20 11:44] VITALS: BP 127/65; PULSE 65; RESP 16; TEMP 36.4; O2SAT 98; BMI 39.3
== END ==
PROVIDERS: PCP Internal Medicine Adolescent Medicine; Visit Provider Internal Medicine Adolescent Medicine
DX: K57.20 Diverticulitis of large intestine with perforation and abscess without bleeding (principal)
CPT/HCPCS: 96365; J1335

== ENCOUNTER 2019-05-21 12:19 | Outpatient (CLI) | payer OTHER, SELFPAY ==
[2019-05-21 12:38] VITALS: BP 128/71; PULSE 78; RESP 18; TEMP 36.6; O2SAT 98
[2019-05-21 13:08] VITALS: BP 124/79; PULSE 77; RESP 18; O2SAT 99
[2019-05-21 13:25] VITALS: BP 123/78; PULSE 69; RESP 18; O2SAT 98
== END 2019-05-21 13:25 | disposition home or self-care (01) ==
LOC: INF 12:19
PROVIDERS: Visit Provider Internal Medicine Adolescent Medicine
DX: K57.20 Diverticulitis of large intestine with perforation and abscess without bleeding (principal)
CPT/HCPCS: 96365; J1335

== ENCOUNTER 2019-05-22 12:17 | Outpatient (CLI) | payer OTHER, SELFPAY ==
[2019-05-22 12:25] VITALS: BP 131/78; PULSE 69; RESP 18; TEMP 36.2; O2SAT 98
[2019-05-22 13:10] VITALS: BP 122/66; PULSE 86; RESP 20; O2SAT 98
== END 2019-05-22 13:20 | disposition home or self-care (01) ==
LOC: INF 12:17
PROVIDERS: Visit Provider Internal Medicine Adolescent Medicine
DX: K57.20 Diverticulitis of large intestine with perforation and abscess without bleeding (principal)
CPT/HCPCS: 96365; J1335

== ENCOUNTER 2019-05-23 12:20 | Outpatient (CLI) | payer OTHER, SELFPAY ==
[2019-05-23 12:37] VITALS: BP 143/73; PULSE 66; RESP 18; TEMP 36.7; O2SAT 98
[2019-05-23 13:25] VITALS: BP 137/68; PULSE 64; RESP 18; O2SAT 99
== END 2019-05-23 13:35 | disposition home or self-care (01) ==
LOC: INF 12:20
PROVIDERS: Visit Provider Internal Medicine Adolescent Medicine
DX: K57.20 Diverticulitis of large intestine with perforation and abscess without bleeding (principal)
CPT/HCPCS: 96365; J1335

== ENCOUNTER 2019-05-24 12:15 | Outpatient (CLI) | payer OTHER, SELFPAY ==
[2019-05-24 12:15] VITALS: BP 129/87; PULSE 61; RESP 18; TEMP 36.6; O2SAT 99
[2019-05-24 13:05] VITALS: BP 134/70; PULSE 61; RESP 18; O2SAT 99
== END 2019-05-24 13:05 | disposition home or self-care (01) ==
LOC: INF 12:15
PROVIDERS: Visit Provider Internal Medicine Adolescent Medicine
DX: K57.20 Diverticulitis of large intestine with perforation and abscess without bleeding (principal)
CPT/HCPCS: 96365; J1335

== ENCOUNTER 2019-05-25 12:09 | Outpatient (CLI) | payer OTHER, SELFPAY ==
[2019-05-25 12:11] VITALS: BP 139/65; PULSE 52; RESP 18; O2SAT 98
[2019-05-25 12:59] VITALS: BP 132/71; PULSE 62; RESP 18
== END 2019-05-25 12:59 | disposition home or self-care (01) ==
LOC: INF 12:09
PROVIDERS: Visit Provider Internal Medicine Adolescent Medicine
DX: K57.20 Diverticulitis of large intestine with perforation and abscess without bleeding (principal)
CPT/HCPCS: 96365; J1335

== ENCOUNTER 2019-05-26 11:45 | Outpatient (CLI) | payer OTHER, SELFPAY ==
[2019-05-26 12:08] VITALS: BP 134/69; PULSE 69; RESP 17; TEMP 36.8; O2SAT 96
[2019-05-26 12:40] VITALS: BP 132/68; PULSE 72; RESP 17; TEMP 36.8; O2SAT 95
== END 2019-05-26 12:45 | disposition home or self-care (01) ==
LOC: INF 11:45
PROVIDERS: PCP Internal Medicine Adolescent Medicine; Visit Provider Internal Medicine Adolescent Medicine
DX: K57.20 Diverticulitis of large intestine with perforation and abscess without bleeding (principal)
CPT/HCPCS: 96365; G0463; J1335

== ENCOUNTER 2019-05-27 11:14 | Outpatient (CLI) | payer OTHER, SELFPAY ==
[2019-05-27 11:58] VITALS: BP 139/81; PULSE 60; RESP 16; TEMP 36.8; O2SAT 98
== END 2019-05-27 12:25 | disposition home or self-care (01) ==
PROVIDERS: PCP Internal Medicine Adolescent Medicine; Visit Provider Internal Medicine Adolescent Medicine
DX: K57.20 Diverticulitis of large intestine with perforation and abscess without bleeding (principal)
CPT/HCPCS: 96365; J1335

== ENCOUNTER 2019-05-28 12:02 | Outpatient (CLI) | payer OTHER, SELFPAY ==
[2019-05-28 12:08] VITALS: BP 137/71; PULSE 75; RESP 18; TEMP 36.7; O2SAT 96
[2019-05-28 12:38] VITALS: BP 130/69; PULSE 79; RESP 18; O2SAT 97
[2019-05-28 13:00] VITALS: BP 119/75; PULSE 69; RESP 18; O2SAT 97
== END 2019-05-28 13:00 | disposition home or self-care (01) ==
LOC: INF 12:02
PROVIDERS: PCP Internal Medicine Adolescent Medicine; Visit Provider Internal Medicine Adolescent Medicine
DX: K52.9 Noninfective gastroenteritis and colitis, unspecified (principal)
CPT/HCPCS: 96365; J1335

== ENCOUNTER 2019-05-29 12:35 | Outpatient (CLI) | payer OTHER, SELFPAY ==
[2019-05-29 12:50] VITALS: BP 137/66; PULSE 66; RESP 20; TEMP 37.1; O2SAT 95
[2019-05-29 13:35] VITALS: BP 138/68; PULSE 68; RESP 20; TEMP 36.9; O2SAT 95
== END 2019-05-29 13:40 | disposition home or self-care (01) ==
LOC: INF 12:35
PROVIDERS: Visit Provider Internal Medicine Adolescent Medicine
DX: K52.9 Noninfective gastroenteritis and colitis, unspecified (principal)
CPT/HCPCS: 96365; J1335

== ENCOUNTER 2019-05-30 10:49 | Outpatient (CLI) | payer OTHER, SELFPAY ==
--- NOTE | 2019-05-30 11:47 | CT_ITS ---
PROCEDURE: CT ABDOMEN PELVIS W CON CLINICAL INDICATION: DIVERTICULITIS Diverticulitis abscess follow-up COMPARISON: CT ABDOMEN PELVIS W CON from 05/13/2019 TECHNIQUE: IV Contrast: 75ML OPTIRAY 350 Oral Contrast 20ml Gastroview Axial images obtained with sagittal and coronal reformats. All CT scans at the facility use one or more dose reduction, viz: automated exposure control, ma/kV adjustment per patient size (including targeted exams where dose is matched to indication, i.e. head), or iterative reconstruction technique. FINDINGS: LOWER THORAX: No acute finding ABDOMEN & PELVIS: There is mild fatty liver. No focal liver lesions are evident. There are post cholecystectomy changes. There is some irregularity of the right hepatic lobe which may be seen cirrhosis. The spleen is enlarged 14 cm. The adrenal glands, pancreas, and kidneys have an unremarkable appearance. There are few scattered small retroperitoneal lymph nodes. Unremarkable appendix. No intestinal obstruction. There remains stranding of the abdominal fat in the left lower quadrant. There is a 3.2 x 3.6 cm loculated fluid collection in the left lower quadrant just anterior to the proximal sigmoid colon consistent with an abscess with some minimal stranding of the fat around this region. There is diverticulosis of the descending and sigmoid colon. No free air is evident. There are degenerative changes in the lumbar spine and hips. IMPRESSION: Joi diverticular abscess in the left lower quadrant anterior to the sigmoid colon measuring 3.6 x 3.2 cm. Overall size has slightly increased. There was an additional collection somewhat more superior to this region along the anterior aspect of the small bowel which is no longer apparent. There is persistent but improved stranding of the fat in the left lower quadrant from the diverticulitis. Dictated by: Marco Antonio Heredia MD 05/30/2019 13:16 Electronically signed by Marco Antonio Heredia MD in [place] 05/30/2019 13:16
[2019-05-30 12:07] LABS: Blood Urea Nitrogen 11 mg/dl (7-17); Estimated Glomerular Filt Rate 86 ml/min (>60); GFR (African American) 104 ML/MIN (>60)
[2019-05-30 12:51] VITALS: BP 151/81; PULSE 73; RESP 18; TEMP 36.6; O2SAT 98
[2019-05-30 13:21] VITALS: BP 147/80; PULSE 70; RESP 18; O2SAT 99
[2019-05-30 13:45] VITALS: BP 138/79; PULSE 71; RESP 18; O2SAT 98
== END 2019-05-30 13:45 | disposition home or self-care (01) ==
LOC: RAD 10:50 → INF 12:33
PROVIDERS: PCP Internal Medicine Adolescent Medicine; Visit Provider Internal Medicine Adolescent Medicine
DX: K57.30 Diverticulosis of large intestine without perforation or abscess without bleeding (principal)
CPT/HCPCS: 36415; 74177; 82565; 84520; 96365; J1335; Q9967

== ENCOUNTER 2019-05-31 12:04 | Outpatient (CLI) | payer OTHER, SELFPAY ==
[2019-05-31 12:23] VITALS: BP 153/70; PULSE 62; RESP 18; TEMP 36.6; O2SAT 98
[2019-05-31 13:00] VITALS: BP 147/79; PULSE 68; RESP 18; TEMP 36.6; O2SAT 98
== END 2019-05-31 13:00 | disposition home or self-care (01) ==
LOC: INF 12:04
PROVIDERS: Visit Provider Internal Medicine Adolescent Medicine
DX: K57.92 Diverticulitis of intestine, part unspecified, without perforation or abscess without bleeding (principal)
CPT/HCPCS: 96365; J1335

== ENCOUNTER 2019-06-01 12:13 | Outpatient (CLI) | payer OTHER, SELFPAY ==
[2019-06-01 12:22] VITALS: BP 145/90; PULSE 72; RESP 18; TEMP 36.3; O2SAT 98
[2019-06-01 13:00] VITALS: BP 139/88; PULSE 74; RESP 18
== END 2019-06-01 13:00 | disposition home or self-care (01) ==
LOC: INF 12:13
PROVIDERS: Visit Provider Internal Medicine Adolescent Medicine
DX: K57.92 Diverticulitis of intestine, part unspecified, without perforation or abscess without bleeding (principal)
CPT/HCPCS: 96365; J1335

== ENCOUNTER → 2019-06-02 11:39 | Outpatient (CLI) | payer OTHER, SELFPAY ==
[2019-06-02 11:57] VITALS: BP 153/89; PULSE 86; RESP 20; TEMP 36.8; O2SAT 95; BMI 38.5
[2019-06-02 12:36] VITALS: BP 150/80; PULSE 86; RESP 20; TEMP 36.8; O2SAT 95
== END ==
PROVIDERS: PCP Internal Medicine Adolescent Medicine; Visit Provider Internal Medicine Adolescent Medicine
DX: K57.92 Diverticulitis of intestine, part unspecified, without perforation or abscess without bleeding (principal)
CPT/HCPCS: 96365; G0463; J1335

== ENCOUNTER 2019-06-03 11:36 | Outpatient (CLI) | payer OTHER, SELFPAY ==
[2019-06-03 11:36] VITALS: BP 154/78; PULSE 58; RESP 18; O2SAT 98
[2019-06-03 12:43] VITALS: BMI 39.1
== END 2019-06-03 13:16 | disposition home or self-care (01) ==
LOC: INF 11:36
PROVIDERS: PCP Internal Medicine Adolescent Medicine; Visit Provider Internal Medicine Adolescent Medicine
DX: K57.92 Diverticulitis of intestine, part unspecified, without perforation or abscess without bleeding (principal)
CPT/HCPCS: 96365; J1335

== ENCOUNTER 2019-06-04 08:42 | Outpatient (CLI) | payer OTHER, SELFPAY ==
--- NOTE | 2019-06-04 08:42 | CT_ITS ---
PROCEDURE: CT DRAIN PARACENTESIS ABSCESS CLINICAL HISTORY: ct guided drainage of diverticular abscess Left lower quadrant pain COMPARISON: CT ABDOMEN PELVIS W CON from 05/30/2019 TECHNIQUE: Axial images obtained with sagittal and coronal reformats. All CT scans at the facility use one or more dose reduction, viz: automated exposure control, ma/kV adjustment per patient size (including targeted exams where dose is matched to indication, i.e. head), or iterative reconstruction technique. FINDINGS: Patient has had known diverticulitis with a small diverticular abscess in the left lower quadrant. This previously measured 3.6 x 3.2 cm. Today's repeat exam shows a collection of be slightly smaller in size today measuring 3.3 x 2.5 cm with less amount of gas in today's exam.. The collection is not quite large enough for percutaneous drainage catheter placement therefore, aspiration was performed of the collection. Using CT guidance under aseptic conditions and local anesthesia with 1 percent buffered lidocaine, a 20 gauge spinal needle was inserted into the collection and approximately 3 cc purulent bloody fluid was aspirated. This fluid was sent to the lab for culture and sensitivity and g stain. No further aspirate could be obtained. The patient tolerated the procedure well without evidence of immediate complication. IMPRESSION: Uneventful percutaneous CT-guided aspiration of diverticular abscess. Please see above for detail Dictated by: Marco Antonio Heredia MD 06/04/2019 16:08 Electronically signed by Marco Antonio Heredia MD in [place] 06/04/2019 16:08
[2019-06-04 08:51] VITALS: BMI 40.2
[2019-06-04 09:08] LABS: Basophils % 0.8 % (0.1-2.0); Eosinophils # 0.2 K/mm3 (0.0-0.4); Hematocrit 43.1 % (37.0-47.0); Hemoglobin 13.9 g/dL (12.2-16.2); Lymphocytes % 37.3 % (10-50); Mean Corpuscular HGB Conc 32.2 g/dL (31.8-35.4); Mean Corpuscular Hemoglobin 32.5 pg (27.0-31.2); Mean Platelet Volume 7.4 fl (7.4-10.4); Monocytes # 0.3 K/mm3 (0.1-1.0); Monocytes % 5.1 % (1.7-9.3); Neutrophils # 2.8 K/mm3 (1.8-7.8); Neutrophils % 53.8 % (37.0-80.0); Platelet Count 176 K/mm3 (142-424); Red Blood Count 4.26 M/mm3 (4.20-5.40); Red Cell Distribution Width 12.9 % (11.5-17.5); White Blood Count 5.3 K/mm3 (4.8-10.8)
[2019-06-04 09:14] LABS: Activated Partial Thrombo Time 25.9 seconds (23.6-34.0); INR 1.07 (0.9-1.1); Prothrombin Time 11.1 seconds (9.4-11.8)
[2019-06-04 12:04] VITALS: BP 143/68; PULSE 53; RESP 18; TEMP 36.6; O2SAT 98
[2019-06-04 12:34] VITALS: BP 140/66; PULSE 58; RESP 18; O2SAT 97
[2019-06-04 12:50] VITALS: BP 132/74; PULSE 61; RESP 18; O2SAT 99
== END 2019-06-04 12:50 | disposition home or self-care (01) ==
LOC: RAD 08:42 → INF 08:47
PROVIDERS: PCP Internal Medicine Adolescent Medicine; Visit Provider Surgery
DX: K57.20 Diverticulitis of large intestine with perforation and abscess without bleeding (principal)
CPT/HCPCS: 75989; 85025; 85610; 85730; 87070; 87077; 87205; 96365; J1335

== ENCOUNTER 2019-06-05 12:28 | Outpatient (CLI) | payer OTHER, SELFPAY ==
[2019-06-05 12:30] VITALS: BP 139/80; PULSE 64; RESP 18; TEMP 36.6; O2SAT 98
[2019-06-05 13:10] VITALS: BP 140/72; PULSE 68; RESP 18; TEMP 36.6; O2SAT 98
== END 2019-06-05 13:10 | disposition home or self-care (01) ==
LOC: INF 12:28
PROVIDERS: Visit Provider Internal Medicine Adolescent Medicine
DX: K57.92 Diverticulitis of intestine, part unspecified, without perforation or abscess without bleeding (principal)
CPT/HCPCS: 96365; J1335

== ENCOUNTER 2019-06-11 10:52 | Outpatient (CLI) | payer OTHER, SELFPAY | END 2019-06-11 11:00 | disposition home or self-care (01) | LOC: INF 10:52 | PROVIDERS: Visit Provider Internal Medicine Adolescent Medicine | DX: Z45.2 Encounter for adjustment and management of vascular access device (principal) | CPT/HCPCS: G0463 ==

== ENCOUNTER → 2019-07-31 15:22 | Outpatient (CLI) | payer OTHER, SELFPAY ==
--- NOTE | 2019-07-31 15:27 | XR_ITS ---
PROCEDURE: XR HIP LT 2-3V W/PELVIS CLINICAL INDICATION: LT HIP PAIN Left hip pain COMPARISON: No exams were available for comparison FINDINGS: There are mild osteoarthritic changes involving both hips. No fracture or dislocation. No lytic or blastic change. IMPRESSION: Mild osteoarthritis of the hips Dictated by: Marco Antonio Heredia MD 07/31/2019 15:58 Electronically signed by Marco Antonio Heredia MD in [place] 07/31/2019 15:58
== END ==
PROVIDERS: PCP Internal Medicine Adolescent Medicine; Visit Provider Nurse Practitioner Family
DX: M25.552 Pain in left hip (principal)
CPT/HCPCS: 73502

== ENCOUNTER → 2020-01-03 13:32 | Outpatient (CLI) | payer OTHER, SELFPAY | PROVIDERS: PCP Internal Medicine Adolescent Medicine; Visit Provider Internal Medicine Adolescent Medicine | DX: Z03.818 Encounter for observation for suspected exposure to other biological agents ruled out (principal); R05 Cough | CPT/HCPCS: U0003 ==

== ENCOUNTER → 2020-01-08 10:25 | Outpatient (CLI) | payer OTHER, SELFPAY ==
[2020-01-09 07:33] LABS: Covid-19 Nasal PCR Sendout Lex NOT DETECTED
== END ==
PROVIDERS: Visit Provider Internal Medicine Adolescent Medicine
DX: Z03.818 Encounter for observation for suspected exposure to other biological agents ruled out (principal)
CPT/HCPCS: U0004

== ENCOUNTER → 2020-03-14 14:29 | Outpatient (CLI) | payer OTHER, SELFPAY ==
--- NOTE | 2020-03-14 14:40 | MM_ITS ---
PROCEDURE: MM DIG MAMM BI DX W/CAD Digital Breast Tomosynthesis Included LEFT BREAST ULTRASOUND COMPLETE WITH AXILLA CLINICAL INDICATION: ABN MAMM, follow-up breast nodule COMPARISON: MG DMSB DIG MAMM-SCREEN JUANA from 01/07/2016 MG MAMMO DIAGNOSTIC DIGITAL TOMOSYNTHESIS BILATERAL W CAD from 12/27/2016 US US BREAST LEFT LIMITED from 12/27/2016 US US GUIDED BREAST BIOPSY W WO DEVICE 1ST LEFT from 12/27/2016 US US BREAST LT COMPLETE from 01/11/2019 MG MM DIG MAMM BI DX W/CAD from 03/13/2019 US US BREAST LT COMPLETE from 03/14/2020 TECHNIQUE: Standard images performed along with spot compression views Mag views and 3D tomography. Left breast ultrasound also performed. FINDINGS: There is average fibroglandular tissue. Bilateral benign-appearing calcifications are noted. No malignant appearing mass or malignant-appearing microcalcification. There is a benign-appearing nodular density in the left retroareolar region medially not significantly changed. Biopsy clip is present at this area. Left breast ultrasound: In the left retroareolar region there is a 4 mm isoechoic nodule associated with a small complex cystic area. This may represent a papilloma with a dilated duct. The ductal dilatation may be slightly greater compared 12/27/2016. No other significant anomalies. IMPRESSION: Benign findings. No change change in the benign-appearing retroareolar nodule on the left. Ductal dilatation in this area may be slightly greater. BI-RAD Category: BI-RADS category 2 benign Recommend annual mammographic and sonographic follow-up. (A letter has been sent to the patient regarding results of the study.) Dictated by: Marco Antonio Heredia MD 03/18/2020 09:21 Marco Antonio Heredia MD in [place] 03/18/2020 09:21
== END ==
PROVIDERS: PCP Internal Medicine Adolescent Medicine; Visit Provider Internal Medicine Adolescent Medicine
DX: R92.8 Other abnormal and inconclusive findings on diagnostic imaging of breast (principal)
CPT/HCPCS: 76641; 77062; 77066; G0279

== ENCOUNTER → 2021-03-16 12:47 | Outpatient (CLI) | payer OTHER, SELFPAY ==
--- NOTE | 2021-03-16 12:48 | MM_ITS ---
PROCEDURE INFORMATION: Exam: MG Bilateral Screening 3D Mammography Exam date and time: 03/16/2021 12:48 PM Age: 60 years old Clinical indication: Encounter for screening mammogram for malignant neoplasm of breast TECHNIQUE: Imaging protocol: Bilateral screening tomosynthesis and 2D mammography including computer-aided detection (CAD) when performed. COMPARISON: 1. MG MM DIG MAMM BI DX W/CAD 03/14/2020 2:49 PM 2. MG MM DIG MAMM BI DX W/CAD 03/13/2019 2:50 PM FINDINGS: MAMMOGRAPHY: Breast composition: The breast tissue is composed of scattered areas of fibroglandular density. Mass: None. Architectural distortion: None. Calcifications: No suspicious calcifications. Asymmetric density: None. Skin thickening: None. Axillary adenopathy: None. IMPRESSION: No mammographic evidence of malignancy. Annual screening is recommended unless otherwise clinically indicated. ASSESSMENT: BI-RADS Category 1: Negative
== END ==
PROVIDERS: PCP Internal Medicine Adolescent Medicine; Visit Provider Surgery
DX: Z12.31 Encounter for screening mammogram for malignant neoplasm of breast (principal); N60.11 Diffuse cystic mastopathy of right breast; N60.12 Diffuse cystic mastopathy of left breast
CPT/HCPCS: 76641; 77063; 77067

== ENCOUNTER → 2022-07-07 07:42 | Outpatient (CLI) | payer OTHER, SELFPAY ==
--- NOTE | 2022-07-07 07:46 | MM_ITS ---
PROCEDURE INFORMATION: Exam: MG Bilateral Screening 3D Mammography Exam date and time: 07/07/2022 7:46 AM Age: 62 years old Clinical indication: Screening examination. Her mother and grandmother had breast cancer. History of benign left excisional biopsy. TECHNIQUE: Imaging protocol: Bilateral Screening tomosynthesis and 2D mammography including computer-aided detection (CAD) when performed. COMPARISON: 1. MG MM DIG SCREENING MAMM BI W/CAD 03/16/2021 1:05 PM 2. MG MM DIG MAMM BI DX W/CAD 03/14/2020 2:49 PM 3. MG MM DIG MAMM BI DX W/CAD 03/13/2019 2:50 PM 4. MG MAMMO DIAGNOSTIC DIGITAL TOMOSYNTHESIS BILATERAL W CAD 12/27/2016 1:39 PM FINDINGS: MAMMOGRAPHY: Breast composition: There are scattered areas of fibroglandular density. Mass: None. Architectural distortion: None. Calcifications: Progressive coarse benign-appearing calcifications on the left. No suspicious calcifications. Asymmetric density: None. Skin thickening: None. Axillary adenopathy: None. Other: Left biopsy clip. IMPRESSION: No mammographic evidence of malignancy. Annual screening is recommended unless otherwise clinically indicated. ASSESSMENT: BI-RADS Category 2: Benign
== END ==
PROVIDERS: PCP Nurse Practitioner Family; Visit Provider Internal Medicine Adolescent Medicine
DX: Z12.31 Encounter for screening mammogram for malignant neoplasm of breast (principal)
CPT/HCPCS: 77063; 77067

== ENCOUNTER 2024-07-23 09:19 | Outpatient (CLI) | payer OTHER, SELFPAY ==
--- NOTE | 2024-07-23 09:21 | MM_ITS ---
PROCEDURE INFORMATION: Exam: MG Bilateral Screening 3D Mammography Exam date and time: 07/23/2024 10:14 AM Age: 64 years old Clinical indication: Screening examination. Her mother and grandmother had breast cancer. TECHNIQUE: Imaging protocol: Bilateral Screening tomosynthesis and 2D mammography including computer-aided detection (CAD) when performed. COMPARISON: 1. MG MM DIG SCREENING MAMM BI W/CAD 07/07/2022 7:46 AM 2. MG MM DIG SCREENING MAMM BI W/CAD 03/16/2021 1:05 PM 3. MG MM DIG MAMM BI DX W/CAD 03/14/2020 2:49 PM 4. MG MM DIG MAMM BI DX W/CAD 03/13/2019 2:50 PM FINDINGS: MAMMOGRAPHY: Breast composition: There are scattered areas of fibroglandular density. Mass: None. Architectural distortion: None. Calcifications: No suspicious calcifications. Asymmetric density: None. Skin thickening: None. Axillary adenopathy: None. IMPRESSION: No mammographic evidence of malignancy. Annual screening is recommended unless otherwise clinically indicated. ASSESSMENT: BI-RADS Category 1: Negative.
--- NOTE | 2024-07-23 09:21 | XR_ITS ---
FINAL REPORT TECHNIQUE: Bone densitometry calculations of the lumbar spine and left hip were obtained. CLINICAL HISTORY: post menopausal COMPARISON: None FINDINGS: Using L1-4, the bone mineral density of the spine is 1.071 g/cm2, corresponding to T-score of 0.2. Using the left hip, the bone mineral density of the femoral neck is 0.788 g/cm2, corresponding to a T-score of -0.5. Using the right hip, the bone mineral density of the femoral neck is 0.749 g/cm?, corresponding to a T-score of -0.9. NOTE: T-score: Standard deviation compared with peak bone mass of young adult mean. *Following the recommendations of the International Society of Bone densitometry, classification of hip BMD is based on the lower of two T-scores; total hip or femoral neck. IMPRESSION: Normal bone mineral density of the lumbar spine and bilateral hips. Reviewed, Interpreted and Dictated by Tobi Burton MD Transcribed by Brittani Napier Authenticated and [facility]
== END 2024-07-23 23:59 | disposition home or self-care (01) ==
LOC: RAD 09:20
PROVIDERS: PCP Nurse Practitioner Family; Visit Provider Nurse Practitioner Family
DX: Z12.31 Encounter for screening mammogram for malignant neoplasm of breast (principal); Z78.0 Asymptomatic menopausal state; Z13.820 Encounter for screening for osteoporosis
CPT/HCPCS: 77063; 77067; 77080